=== PATIENT | male | born 1975 | race Caucasian/White ===

== ENCOUNTER 2022-04-12 08:09 | Day surgery (SDC) | payer OTHER ==
[2022-04-10 14:35] VITALS: BMI 33.9
[2022-04-12] MEDS ORDERED: PROPOFOL 40 ML ONE (08:40)
[2022-04-12 09:47] VITALS: RESP 18
[2022-04-12 10:21] VITALS: BP 124/84; PULSE 60; TEMP 97.2
== END 2022-04-12 10:21 | disposition home or self-care (01) ==
LOC: FASU-ENDO 08:09
PROVIDERS: ATTEND Internal Medicine Gastroenterology
PROC: 0DJD8ZZ Inspection of Lower Intestinal Tract, Via Natural or Artificial Opening Endoscopic (ICD-10-PCS; principal; 2022-04-12 09:00)
DX: Z12.11 Encounter for screening for malignant neoplasm of colon (principal)